=== PATIENT | male | born 1945 | race Caucasian/White ===

== ENCOUNTER 2024-12-31 14:43 | Inpatient (IN) | payer OTHER ==
[~2024-12-31] VITALS: Ht 177.8 cm; Wt 139.1 kg
[2024-12-31] MEDS ORDERED: ELIQUIS5 M3 PO (15:06)
[2024-12-31] MEDS ORDERED: METOPROLOL TART5010 PO (15:06)
[2024-12-31] MEDS ORDERED: Ramipril10 MG PO (15:06)
[2024-12-31] MEDS ORDERED: Zocor10 MG PO (15:06)
[2024-12-31 15:44] LABS: Source, Urine Voided
[2024-12-31 15:47] LABS: CORONAVIRUS COVID-19 AG Negative (NEGATIVE)
[2024-12-31 15:48] LABS: BASOPHILS ABSOLUTE AUTO 0.10 K/mm3 (0.00-0.23); BASOPHILS PERCENT AUTO 1 % (0-2); EOSINOPHILS ABSOLUTE AUTO 0.08 K/mm3 (0.00-0.68); EOSINOPHILS PERCENT AUTO 1 % (0-6); Hematocrit 46.7 % (37.0-53.0); Hemoglobin 15.6 g/dL (13.5-17.5); IMMATURE GRAN ABSOLUTE AUTO 0.08 K/mm3 (0.00-0.10); IMMATURE GRAN PERCENT AUTO 1 % (0-1); LYMPHOCYTES ABSOLUTE AUTO 0.53 K/mm3 (0.84-5.20); LYMPHOCYTES PERCENT AUTO 3 % (21-46); MONOCYTES ABSOLUTE AUTO 0.96 K/mm3 (0.16-1.47); MONOCYTES PERCENT AUTO 6 % (4-13); Mean Corpuscular HGB Conc 33.4 g/dL (31.5-36.5); Mean Corpuscular Volume 84 fL (80-100); NEUTROPHILS ABSOLUTE AUTO 14.02 K/mm3 (1.96-9.15); NEUTROPHILS PERCENT AUTO 89 % (41-73); NRBC ABSOLUTE 0.00 K/mm3 (0.00-0.02); NRBC Auto 0.0 /100 WBC (0.0-0.2); Platelet Count 184 K/mm3 (150-400); RDW Coefficient Variation 13.4 % (11.7-14.2); RDW Standard Deviation 42.0 fL (35.1-46.3)
[2024-12-31 15:56] LABS: Bilirubin, Urine Neg (Neg); Color, Urine Amber (P-Yellow); Glucose Qualitative, Urine Neg (Neg); Ketones, Urine Neg (Neg); Leukocyte Esterase, Urine 1+ (Neg); Protein, Urine 1+ (Neg); Specific Gravity, Urine 1.020 (1.003-1.022); Urobilinogen, Urine NORM (Normal)
[2024-12-31 16:08] LABS: Prothrombin Time Results 12.8 Sec (9.7-11.5)
[2024-12-31 16:15] LABS: Red Blood Cells, Urine 0-2 /hpf (0-2)
[2024-12-31 17:10] LABS: Alanine Aminotransfer (ALT/SGP 16.0 U/L (12-78); Albumin, Blood 3.3 g/dL (3.4-5.0); Albumin/Globulin Ratio 0.8 (0.8-1.8); Anion Gap 9.0 mmol/L (3-11); Aspartate Aminotrans (AST/SGOT 24.0 U/L (12-37); Bilirubin, Direct 0.2 mg/dL (0.0-0.3); Bilirubin, Indirect 1.0 mg/dL (0.1-0.7); Bilirubin, Total 1.2 mg/dL (0.1-1.0); Blood Urea Nitrogen 19.0 mg/dL (8-24); CO2, Blood 25.0 mmol/L (21-32); Calcium, Blood 9.5 mg/dL (8.5-10.1); Chloride, Blood 106.0 mmol/L (98-108); Creatinine, Blood 1.31 mg/dL (0.60-1.20); Globulin, Blood 4.2 g/dL (2.2-4.0); Glucose, Blood 114.0 mg/dL (70-99); Magnesium, Blood 1.6 mg/dL (1.6-2.4); Phosphorus, Blood 1.6 mg/dL (2.5-4.9); Potassium, Blood 4.0 mmol/L (3.5-5.5); Sodium, Blood 136.0 mmol/L (136-145); Total Protein, Blood 7.5 g/dL (6.4-8.2)
[2024-12-31] MEDS ORDERED: CefTRIAXone Sodium 1,000 MG in NS 50 ML IV ONE (17:35)
[2024-12-31] MEDS ORDERED: Potassium Phosphate Dibasic 30 MM in Dextrose 5% 500 ML IV STA (19:20)
[2024-12-31 20:13] LABS: pH Blood Venous 7.37 (7.34-7.37)
[2024-12-31] MEDS ORDERED: Lactobacil 2-S.Thermo-Bifido 1 1 Cap PO SCH (21:00)
[2024-12-31 21:03] VITALS: BP 135/77
[2024-12-31] MEDS ORDERED: KLOR-CON 1010 ME9 PO (21:06)
[2025-01-01 04:20] VITALS: BP 129/72
[2025-01-01 04:56] LABS: BASOPHILS ABSOLUTE AUTO 0.05 K/mm3 (0.00-0.23); BASOPHILS PERCENT AUTO 0 % (0-2); EOSINOPHILS ABSOLUTE AUTO 0.02 K/mm3 (0.00-0.68); EOSINOPHILS PERCENT AUTO 0 % (0-6); Hematocrit 43.8 % (37.0-53.0); Hemoglobin 14.8 g/dL (13.5-17.5); IMMATURE GRAN ABSOLUTE AUTO 0.07 K/mm3 (0.00-0.10); IMMATURE GRAN PERCENT AUTO 1 % (0-1); LYMPHOCYTES ABSOLUTE AUTO 0.66 K/mm3 (0.84-5.20); LYMPHOCYTES PERCENT AUTO 5 % (21-46); MONOCYTES ABSOLUTE AUTO 1.09 K/mm3 (0.16-1.47); MONOCYTES PERCENT AUTO 8 % (4-13); Mean Corpuscular HGB Conc 33.8 g/dL (31.5-36.5); Mean Corpuscular Volume 86 fL (80-100); NEUTROPHILS ABSOLUTE AUTO 11.16 K/mm3 (1.96-9.15); NEUTROPHILS PERCENT AUTO 85 % (41-73); NRBC ABSOLUTE 0.00 K/mm3 (0.00-0.02); NRBC Auto 0.0 /100 WBC (0.0-0.2); Platelet Count 163 K/mm3 (150-400); RDW Coefficient Variation 13.7 % (11.7-14.2); RDW Standard Deviation 43.3 fL (35.1-46.3)
--- NOTE | 2025-01-01 06:24 | NUR ---
SHIFT SUMMARY PATIENT IS ALERT AND ORIENTED X3 WITH CONFUSION. PATIENT HAS HAD NO ACUTE EVENTS THIS SHIFT. VITAL SIGNS REVIEWED. PATIENT HAS MALE PUREWICK IN PLACE FOR INCONTINENCE. PATIENT HAS HAD NO COMPLAINTS OF PAIN,NAUSEA, SOB OR VOMITTING THIS SHIFT. BED IN LOCKED AND LOWEST POSITION. CALL LIGHT IN PLACE.
[2025-01-01 08:09] VITALS: BP 129/70
[2025-01-01] MEDS ORDERED: Furosemide 10 MG / ML 2ML Vial IV SCH (09:00)
[2025-01-01 11:04] LABS: Alanine Aminotransfer (ALT/SGP 14.0 U/L (12-78); Albumin, Blood 2.9 g/dL (3.4-5.0); Albumin/Globulin Ratio 0.8 (0.8-1.8); Anion Gap 15.0 mmol/L (3-11); Aspartate Aminotrans (AST/SGOT 22.0 U/L (12-37); Bilirubin, Total 1.2 mg/dL (0.1-1.0); Blood Urea Nitrogen 15.0 mg/dL (8-24); CO2, Blood 24.0 mmol/L (21-32); Calcium, Blood 9.1 mg/dL (8.5-10.1); Chloride, Blood 103.0 mmol/L (98-108); Creatinine, Blood 1.34 mg/dL (0.60-1.20); Globulin, Blood 3.8 g/dL (2.2-4.0); Glucose, Blood 116.0 mg/dL (70-99); Magnesium, Blood 1.7 mg/dL (1.6-2.4); Potassium, Blood 4.3 mmol/L (3.5-5.5); Sodium, Blood 138.0 mmol/L (136-145); Total Protein, Blood 6.7 g/dL (6.4-8.2)
[2025-01-01] MEDS ORDERED: NS 250 ML IV PRN (11:10)
[2025-01-01] MEDS ORDERED: CefTRIAXone Sodium 1,000 MG in NS 100 ML IV SCH (12:00)
[2025-01-01 15:47] VITALS: BP 122/65
--- NOTE | 2025-01-01 18:22 | NUR ---
SHIFT SUMMARY NO ACUTE CHANGES, A/Ox4, ABLE TO MAKE NEEDS KNOWN AND USING CALL SYSTEM APPROPRIATELY. PT DOES HAVE DIFFICULTY FOLLOWING DIRECTION AT TIMES. PT DENIES PAIN, SOB, OR DISTRESS. NONBLANCHABLE COCCYX. WOUND/INFECTION TO LEFT 3RD TOE - PODIATRY CONSULTED, NO NEW ORDERS AT THIS TIME. PHOTOS TAKEN AND PLACED IN PT CHART. LASIX ADMINISTERED PER ORDERS, ABX ALSO ADMINISTERED. USING URINAL WITH ASSISTANCE WITH OCCASIONAL INCONTINENT EPISODE. PT CURRENTLY RESTING IN BED EATING DINNER WITH BED IN LOWEST POSITION AND CALL LIGHT WITHIN REACH.
[2025-01-01 19:21] VITALS: BP 108/76
[2025-01-01] MEDS ORDERED: Miconazole Nitrate 2% 85 GM PWD TOP SCH (21:00)
[2025-01-01 23:23] VITALS: BP 115/66
[2025-01-02 03:30] VITALS: BP 145/84
[2025-01-02 05:20] LABS: BASOPHILS ABSOLUTE AUTO 0.05 K/mm3 (0.00-0.23); BASOPHILS PERCENT AUTO 1 % (0-2); EOSINOPHILS ABSOLUTE AUTO 0.30 K/mm3 (0.00-0.68); EOSINOPHILS PERCENT AUTO 3 % (0-6); Hematocrit 42.0 % (37.0-53.0); Hemoglobin 14.1 g/dL (13.5-17.5); IMMATURE GRAN ABSOLUTE AUTO 0.07 K/mm3 (0.00-0.10); IMMATURE GRAN PERCENT AUTO 1 % (0-1); LYMPHOCYTES ABSOLUTE AUTO 1.22 K/mm3 (0.84-5.20); LYMPHOCYTES PERCENT AUTO 12 % (21-46); MONOCYTES ABSOLUTE AUTO 1.52 K/mm3 (0.16-1.47); MONOCYTES PERCENT AUTO 15 % (4-13); Mean Corpuscular HGB Conc 33.6 g/dL (31.5-36.5); Mean Corpuscular Volume 86 fL (80-100); NEUTROPHILS ABSOLUTE AUTO 6.72 K/mm3 (1.96-9.15); NEUTROPHILS PERCENT AUTO 68 % (41-73); NRBC ABSOLUTE 0.00 K/mm3 (0.00-0.02); NRBC Auto 0.0 /100 WBC (0.0-0.2); Platelet Count 160 K/mm3 (150-400); RDW Coefficient Variation 14.1 % (11.7-14.2); RDW Standard Deviation 43.7 fL (35.1-46.3)
[2025-01-02 05:49] LABS: Anion Gap 9.0 mmol/L (3-11); Blood Urea Nitrogen 19.0 mg/dL (8-24); CO2, Blood 25.0 mmol/L (21-32); Calcium, Blood 8.5 mg/dL (8.5-10.1); Chloride, Blood 104.0 mmol/L (98-108); Creatinine, Blood 1.43 mg/dL (0.60-1.20); Glucose, Blood 106.0 mg/dL (70-99); Potassium, Blood 3.1 mmol/L (3.5-5.5); Sodium, Blood 135.0 mmol/L (136-145)
--- NOTE | 2025-01-02 06:24 | NUR ---
SUMMERY NOC SHIFT PT ADMITTED FOR TOXIC METABOLIC ENCHEPALOPATHY. PT HAD MALE PUREWICK PLACED HE HAD SEVERAL EPISODES OF URINE URGENCY BUT NOT PRODUCING OR DRINKING A LOT. PT IS COOPERATIVE WITH CARE AND ABLE TO MAKE NEEDS KNOWN. PT IS ALERT AND ORIENTED TIMES 3. BED IS IN LOW POSITION, RAILS TIMES TWO, AND CALL LIGHT IS WITHIN REACH.
[2025-01-02] MEDS ORDERED: CEFP200 PO (14:54)
[2025-01-02] MEDS ORDERED: VISBIOME 112.51 EACH PO (14:55)
[2025-01-02] MEDS ORDERED: AZIT500 PO (14:55)
[2025-01-02 16:32] VITALS: BP 118/66
--- NOTE | 2025-01-02 17:32 | NUR ---
PT DISCHARGED HOME WITH HH SERVICES. NEW RX FAXED TO [facility] PER PT SPOUSE REQUEST. REVIEWED DISCHARGE INSTRUCTIONS AND MEDICATIONS WITH PT AND PT SPOUSE. IV REMOVED AND SITE APPEARS WNL. TELE REMOVED/CLEANED AND SENT BACK TO PCU. PT ABLE TO STAND AND AMBULATE TO AND WHEELED DOWN TO PRIVATE VEHICLE BY ASSORTER. PT SPOUSE DRIVING HIM HOME.
== END 2025-01-02 17:31 | disposition home health service (06) | DRG 871 ==
LOC: ER 14:43 → MEDS 18:22 → ERHOLD 18:22 → MEDS 20:51
PROVIDERS: Emergency Medicine; Student in an Organized Health Care Education/Training Program; ADMIT Student in an Organized Health Care Education/Training Program
DX: A41.9 Sepsis, unspecified organism (principal); G92.8 Other toxic encephalopathy; J18.9 Pneumonia, unspecified organism; L03.116 Cellulitis of left lower limb; E78.5 Hyperlipidemia, unspecified; I12.9 Hypertensive chronic kidney disease with stage 1 through stage 4 chronic kidney disease, or unspecified chronic kidney disease; Z66 Do not resuscitate; E66.9 Obesity, unspecified; I35.0 Nonrheumatic aortic (valve) stenosis; N18.31 Chronic kidney disease, stage 3a; E83.39 Other disorders of phosphorus metabolism; I48.0 Paroxysmal atrial fibrillation; Z68.32 Body mass index [BMI] 32.0-32.9, adult; Z79.01 Long term (current) use of anticoagulants; Z79.899 Other long term (current) drug therapy
CPT/HCPCS: 36415; 71045; 73630; 80048; 80053; 81001; 82248; 82803; 83605; 83735; 83880; 84100; 84145; 85025; 85610; 85730; 87086; 87426-QW; 93005; 93010; 94762; 97116; 97161; 97530; 99285-25; A6590; A9270; C8929; J0456; J0696; J1938; J7050; J7060; Q9957

== ENCOUNTER 2025-02-17 09:25 | Inpatient (IN) | payer OTHER ==
[~2025-02-17] VITALS: Ht 177.8 cm; Wt 136.8 kg
[~2025-02-17 09:25] MED LIST: AZIT500 PO; CEFP200 PO; ELIQUIS5 M3 PO; KLOR-CON 1010 ME9 PO; METOPROLOL TART5010 PO; Ramipril10 MG PO; VISBIOME 112.51 EACH PO; Zocor10 MG PO
[2025-02-17 09:56] LABS: Source, Urine Clean Catch
[2025-02-17 10:08] LABS: Bilirubin, Urine Neg (Neg); Color, Urine Yellow (P-Yellow); Glucose Qualitative, Urine Neg (Neg); Ketones, Urine 1+ (Neg); Leukocyte Esterase, Urine Neg (Neg); Protein, Urine 2+ (Neg); Specific Gravity, Urine 1.025 (1.003-1.022); Urobilinogen, Urine NORM (Normal)
[2025-02-17 10:16] LABS: Red Blood Cells, Urine Not Seen /hpf (0-2); White Blood Cells, Urine 0-2 /hpf (0-5)
[2025-02-17 10:23] LABS: BASOPHILS ABSOLUTE AUTO 0.09 K/mm3 (0.00-0.23); BASOPHILS PERCENT AUTO 1 % (0-2); EOSINOPHILS ABSOLUTE AUTO 0.06 K/mm3 (0.00-0.68); EOSINOPHILS PERCENT AUTO 1 % (0-6); Hematocrit 44.3 % (37.0-53.0); Hemoglobin 14.8 g/dL (13.5-17.5); IMMATURE GRAN ABSOLUTE AUTO 0.04 K/mm3 (0.00-0.10); IMMATURE GRAN PERCENT AUTO 0 % (0-1); LYMPHOCYTES ABSOLUTE AUTO 0.79 K/mm3 (0.84-5.20); LYMPHOCYTES PERCENT AUTO 6 % (21-46); MONOCYTES ABSOLUTE AUTO 1.16 K/mm3 (0.16-1.47); MONOCYTES PERCENT AUTO 9 % (4-13); Mean Corpuscular HGB Conc 33.4 g/dL (31.5-36.5); Mean Corpuscular Volume 87 fL (80-100); NEUTROPHILS ABSOLUTE AUTO 10.15 K/mm3 (1.96-9.15); NEUTROPHILS PERCENT AUTO 83 % (41-73); NRBC ABSOLUTE 0.00 K/mm3 (0.00-0.02); NRBC Auto 0.0 /100 WBC (0.0-0.2); Platelet Count 190 K/mm3 (150-400); RDW Coefficient Variation 13.8 % (11.7-14.2); RDW Standard Deviation 44.1 fL (35.1-46.3)
[2025-02-17 10:46] LABS: Alanine Aminotransfer (ALT/SGP 14.0 U/L (12-78); Albumin, Blood 3.0 g/dL (3.4-5.0); Albumin/Globulin Ratio 0.8 (0.8-1.8); Anion Gap 9.0 mmol/L (3-11); Aspartate Aminotrans (AST/SGOT 22.0 U/L (12-37); Bilirubin, Total 1.5 mg/dL (0.1-1.0); Blood Urea Nitrogen 12.0 mg/dL (8-24); CO2, Blood 25.0 mmol/L (21-32); Calcium, Blood 9.0 mg/dL (8.5-10.1); Chloride, Blood 107.0 mmol/L (98-108); Creatinine, Blood 1.1 mg/dL (0.60-1.20); Globulin, Blood 3.9 g/dL (2.2-4.0); Glucose, Blood 114.0 mg/dL (70-99); Potassium, Blood 3.9 mmol/L (3.5-5.5); Sodium, Blood 137.0 mmol/L (136-145); Total Protein, Blood 6.9 g/dL (6.4-8.2)
[2025-02-17] MEDS ORDERED: Furosemide 10 MG / ML 2ML Vial IV ONE (11:25)
[2025-02-17] MEDS ORDERED: Metoprolol Tartrate 1 MG/ML 5 ML VIAL IV ONE (12:00)
[2025-02-17] MEDS ORDERED: ALLO100 (14:10)
[2025-02-17] MEDS ORDERED: Digoxin 0.25 MG in NS 4 ML IV SCH (16:35)
[2025-02-17 16:41] VITALS: BP 144/91
--- NOTE | 2025-02-17 18:12 | NUR ---
ADMIT AND TRANSFER TO PCU PATIENT ARRIVED 1620, ASSESSED THE PATIENT WITH SKIN CHECK, MED RECONCILLIATION COMPLETED, DINNER GIVEN, ORIENTED TO MED FLOOR. MEDICATION ORDER REQUIRED TRANSFER TO PCU 18, RN GIVEN REPORT BEFORE TRANSFER. TRANSFER OCCURED AT 1809. PATIENT A&OX4, NO DISTRESS NOTED, COOPERATIVE WITH CARE.
[2025-02-17 18:15] VITALS: BP 125/92
--- NOTE | 2025-02-17 18:32 | NUR ---
REVIEWED YVES PETERS'S ASSESSMENTS.
[2025-02-17] MEDS ORDERED: ZINC OXIDE/PETROLATUM, YELLOW 1 APPLIC/71 GM PASTE TOP PRN ×2 (19:10→19:25)
[2025-02-17] MEDS ORDERED: Miconazole Nitrate 2% 85 GM PWD TOP PRN ×2 (19:10→19:25)
--- NOTE | 2025-02-17 19:38 | NUR ---
SHIFT SUMMARY: PT TRANSFERRED TP PCU AT 1815, PT AND FAMILY ORIENTED TO ROOM AND CALL LIGHT SYSTEM. PT IS ALERT AND ORIENTED X 4, BEAVER, ABLE TO COMMUNICATE NEEDS. PT DENIES ANY PAIN AT THIS TIME. PT REMAINS ON RA WITH SPO2 ABOVE 92% PT IN AFIB WITH RVR, LANOXIN 0.25MG GIVEN. NO EFFECT, MD MADE AWARE. BP STABLE. +2 EDEMA TO BLE. MALE PUREWICK IN PLACE TO SUCTION. BILATERAL TOE CALLUS NOTED ON ADMISSION, SEE WOUND CARE ORDERS, PICTURES IN CHART. BED AT LOWEST LEVEL, CALL LIGHT WITHIN REACH
[2025-02-17 19:53] VITALS: BP 132/99
[2025-02-17] MEDS ORDERED: Magnesium Sulf 2 GM/Water 50ML 50 ML IV ONE (20:05)
[2025-02-17] MEDS ORDERED: Digoxin 0.25 MG in NS 4 ML IV ONE (22:30)
[2025-02-18] VITALS (7 sets, daily range): BP systolic 124–168; BP diastolic 79–99
[2025-02-18 04:32] LABS: BASOPHILS ABSOLUTE AUTO 0.07 K/mm3 (0.00-0.23); BASOPHILS PERCENT AUTO 1 % (0-2); EOSINOPHILS ABSOLUTE AUTO 0.10 K/mm3 (0.00-0.68); EOSINOPHILS PERCENT AUTO 1 % (0-6); Hematocrit 42.1 % (37.0-53.0); Hemoglobin 14.2 g/dL (13.5-17.5); IMMATURE GRAN ABSOLUTE AUTO 0.07 K/mm3 (0.00-0.10); IMMATURE GRAN PERCENT AUTO 1 % (0-1); LYMPHOCYTES ABSOLUTE AUTO 0.86 K/mm3 (0.84-5.20); LYMPHOCYTES PERCENT AUTO 7 % (21-46); MONOCYTES ABSOLUTE AUTO 1.20 K/mm3 (0.16-1.47); MONOCYTES PERCENT AUTO 10 % (4-13); Mean Corpuscular HGB Conc 33.7 g/dL (31.5-36.5); Mean Corpuscular Volume 85 fL (80-100); NEUTROPHILS ABSOLUTE AUTO 9.51 K/mm3 (1.96-9.15); NEUTROPHILS PERCENT AUTO 81 % (41-73); NRBC ABSOLUTE 0.00 K/mm3 (0.00-0.02); NRBC Auto 0.0 /100 WBC (0.0-0.2); Platelet Count 188 K/mm3 (150-400); RDW Coefficient Variation 13.9 % (11.7-14.2); RDW Standard Deviation 43.0 fL (35.1-46.3)
[2025-02-18 04:57] LABS: Alanine Aminotransfer (ALT/SGP 12.0 U/L (12-78); Albumin, Blood 2.7 g/dL (3.4-5.0); Albumin/Globulin Ratio 0.8 (0.8-1.8); Anion Gap 9.0 mmol/L (3-11); Aspartate Aminotrans (AST/SGOT 20.0 U/L (12-37); Bilirubin, Total 2.0 mg/dL (0.1-1.0); Blood Urea Nitrogen 14.0 mg/dL (8-24); CO2, Blood 24.0 mmol/L (21-32); Calcium, Blood 8.7 mg/dL (8.5-10.1); Chloride, Blood 107.0 mmol/L (98-108); Creatinine, Blood 0.97 mg/dL (0.60-1.20); Globulin, Blood 3.6 g/dL (2.2-4.0); Glucose, Blood 121.0 mg/dL (70-99); Magnesium, Blood 2.1 mg/dL (1.6-2.4); Phosphorus, Blood 2.6 mg/dL (2.5-4.9); Potassium, Blood 3.6 mmol/L (3.5-5.5); Sodium, Blood 136.0 mmol/L (136-145); Total Protein, Blood 6.3 g/dL (6.4-8.2)
--- NOTE | 2025-02-18 05:18 | NUR ---
SHIFT SUMMARY: PATIENT HAS BEEN A&OX2-4 THROUGHOUT SHIFT, WITH INTERMITTENT CONFUSION. MAJORITY OF THE SHIFT HE HAS BEEN A&OX4, BUT NOTED DURING ROUNDING TO AT SOME POINTS BE REMOVING HIS PULSE OXIMETRY PROBE STATING "WHERE DID MY HAND GO?", UNABLE TO STATE HIS CURRENT LOCATION, AND ASKED IF HIS CAME BY TO SEE HIM YET IN THE MIDDLE OF THE NIGHT. PATIENT EASILY REORIENTED EACH TIME. PERIODIC NEURO ASSESSMENTS PERFORMED; FINDINGS WNL EXCEPT FOR THE INTERMITTENT CONFUSION. PRIOR HISTORY REVIEWED- PATIENTS PRIOR ADMISSION (DECEMBER 2024) NOTED CONFUSION THAT RESOLVED WITH IV ABX FOR HIS PNA DX AT THAT TIME. BED ALARM ON FOR SAFETY. TELE SHOWED AFIB WITH HR BETWEEN 90'S-110'S BPM. PATIENT IS TACHYPNEIC WITH CRACKLES TO BILATERAL LUNG BASES BUT PATIENT DENIES SHORTNESS OF BREATH. HE REMAINS ON ROOM AIR WITH >90% SPO2. PATIENT REPORTED A "SHARP" PAININ HIS LEFT WRIST; NO OTHER PAIN COMPLAINTS REPORTED. MD NOTIFIED, TYLENOL PRN ORDERED. PATIENT ON BEDREST; REPOSITIONED WITH 2P ASSIST THROUGHOUT SHIFT. MALE PUREWICK IN PLACE AND ON LOW CONTINUOUT SUCTION WITH LALO/ORANGE URINE OUTPUT. DENIES NUMBNESS/TINGLING THROUGHOUT EXTREMITIES; MOVES ALL FINGERS AND TOES WITHOUT DIFFICULTY. WOUND CARE COMPLETED TO BILATERAL 3RD TOES PER ORDERS- DRESSINGS ARE C/D/I. ONE DOSE OF IV MAGNESIUM AND IV DIGOXIN ADMINISTERED PER AUG. CALL LIGHT WITHIN REACH. CALL LIGHT WITHIN REACH.
--- NOTE | 2025-02-18 09:41 | NUR ---
MD CONTACTED: THIS RN CONTACTED ATTENDING REGARDING PATIENT'S HEART RATE TOUCHING INTO 160'S WHILE TRANSFERRING TO BEDSIDE COMMODE. PATIENT CONTINUES TO OCCASIONALLY TOUCH UP INTO 160'S AFTER BEING GIVEN PO METORPORLOL THIS MORNING. ATTENDING STATED "THEY ARE WAITING TO SPEAK WITH CARDIOLOGY REGARDING PLAN". PATIENT IS WORKING WITH PHYSICAL THERAPY CURRENTLY AND OCCASIONALLY CONTINUES TO TOUCH 160'S. CHARGE NURSE TO CALL SOCIAL SECRETARY TO GET ORDERS.
--- NOTE | 2025-02-18 17:15 | NUR ---
SHIFT NOTE: PT A/OX3-4 POLITE COOPERATIVE WITH CARE. HE IS SK[place] AND OFTEN NEEDS INSTRUCTIONS REPEATED. HE REMAINS IN AFIB. RATES WERE TOUCHING THE 160S THIS AM BUT AFTER METROPOLOL AND DIGOXIN RATES HAVE REMAINED 80-90S. PT DENIES CHEST PAIN/PRESSURE. LOWER EXTRIMITIES REMAIN EDEMATOUS. SCDS IN PLACE WHEN IN BED AND FEET ELEVATED WHEN IN CHAIR. PT NEEDS LOTS OF ENCOURAGEMENT TO GET OUT OF BED AND INTO CHAIR. PUREWICK REMOVED TO ENCOURAGE MOBILITY WHEN NEEDING TO VOID. HE REMAINS ON RA WITH SPO2>90%. CALL LIGHT IN REACH, CARE CONTINUES
[2025-02-19 03:48] VITALS: BP 134/78
[2025-02-19 04:03] LABS: BASOPHILS ABSOLUTE AUTO 0.07 K/mm3 (0.00-0.23); BASOPHILS PERCENT AUTO 1 % (0-2); EOSINOPHILS ABSOLUTE AUTO 0.33 K/mm3 (0.00-0.68); EOSINOPHILS PERCENT AUTO 3 % (0-6); Hematocrit 41.0 % (37.0-53.0); Hemoglobin 13.8 g/dL (13.5-17.5); IMMATURE GRAN ABSOLUTE AUTO 0.10 K/mm3 (0.00-0.10); IMMATURE GRAN PERCENT AUTO 1 % (0-1); LYMPHOCYTES ABSOLUTE AUTO 0.98 K/mm3 (0.84-5.20); LYMPHOCYTES PERCENT AUTO 10 % (21-46); MONOCYTES ABSOLUTE AUTO 1.03 K/mm3 (0.16-1.47); MONOCYTES PERCENT AUTO 10 % (4-13); Mean Corpuscular HGB Conc 33.7 g/dL (31.5-36.5); Mean Corpuscular Volume 85 fL (80-100); NEUTROPHILS ABSOLUTE AUTO 7.35 K/mm3 (1.96-9.15); NEUTROPHILS PERCENT AUTO 75 % (41-73); NRBC ABSOLUTE 0.00 K/mm3 (0.00-0.02); NRBC Auto 0.0 /100 WBC (0.0-0.2); Platelet Count 183 K/mm3 (150-400); RDW Coefficient Variation 13.8 % (11.7-14.2); RDW Standard Deviation 42.5 fL (35.1-46.3)
[2025-02-19 04:33] LABS: Alanine Aminotransfer (ALT/SGP 13.0 U/L (12-78); Albumin, Blood 2.5 g/dL (3.4-5.0); Albumin/Globulin Ratio 0.7 (0.8-1.8); Anion Gap 10.0 mmol/L (3-11); Aspartate Aminotrans (AST/SGOT 22.0 U/L (12-37); Bilirubin, Total 1.4 mg/dL (0.1-1.0); Blood Urea Nitrogen 18.0 mg/dL (8-24); CO2, Blood 23.0 mmol/L (21-32); Calcium, Blood 8.4 mg/dL (8.5-10.1); Chloride, Blood 106.0 mmol/L (98-108); Creatinine, Blood 1.04 mg/dL (0.60-1.20); Globulin, Blood 3.7 g/dL (2.2-4.0); Glucose, Blood 101.0 mg/dL (70-99); Potassium, Blood 3.3 mmol/L (3.5-5.5); Sodium, Blood 136.0 mmol/L (136-145); Total Protein, Blood 6.2 g/dL (6.4-8.2)
--- NOTE | 2025-02-19 05:37 | NUR ---
SHIFT SUMMARY PT IS A&O X 4, SLOW TO RESPOND, ABLE TO MAKE NEEDS KNOWN, MOVING ALL EXTREMITIES WITH PURPOSE, OBEYS COMMANDS, REPOSITIONING SELF IN BED, ENCOURAGMENT WITH MOTIVATION. CONTINUOUS SPO2, SPO2 GREATER 92% ON RA, LUNGS SOUND DIM T/O WITH, NO SIGNS OF RESPIRATORY DISTRESS NOTED T/O THIS SHIFT, PT DENIES SOB. CONTINUOUS TELE MONITORING, AFIB 100-110 S WHILE AT REST/ OCCATIOLANNLLY PT TOUCHED 130 S WITH ACTIVITY BUT DID NOT SUSTAIN, MURMUR, PULSES PRESENT T/O, PT DENIES CHEST P/P T/O THIS SHIFT, BP STABLE WITH MAP GREATER THAN 65. BOWEL TONES PRESENT IN ALL 4Q, PT DENIES FEELINGS OF NAUSEA, OR CONSTIPATION. MIXED INCONTINUENCE, URINE YELLOW. BED LOWEST POSITION, CALL LIGHT IN REACH, AWAITING TO GIVE REPORT TO ONCOMING RN.
[2025-02-19 12:27] VITALS: BP 134/83
--- NOTE | 2025-02-19 13:46 | NUR ---
ASSUMPTION OF CARE ASSUMED CARE OF THIS PATIENT AT 07:00. RECIEVED SHIFT REPORT FROM NIGHT NURSE. PATIENT WAS ALERT AND ORIENTED X4. PATIENT IS IN AFIB >110. PATIENT MEDICATED PER EMAR. PT/OT SCHEDULED FOR TODAY. PATIENT'S HR DECREASED TO 70-90 AFTER MEDICATION. PATIENT DENIES CHEST PAIN/PRESSURE OF SOB. PATIENT HAS PIV IN RIGHT AC, PATENT AND FLUSHES. PATIENT IS RESTING COMFORTABLY IN RECLINER. CALL LIGHT IS WITH IN REACH.
[2025-02-19 17:10] VITALS: BP 131/86
--- NOTE | 2025-02-19 18:25 | NUR ---
SHIFT SUMMARY PATIENT'S RESTING HR HAS BEEN 70-90 IN AFIB. HR INCREASES WITH EXERTION AND RETURNS TO 70-90 WITH IN MINUTES. PATIENT WAS ASSESSED BY PT/OT. HE WAS ABLE TO USE BEDSIDE COMMODE, 1 PERSON ASSIST WITH WALKER. WILL REPORT TO NOC SHIFT RN. RESTING IN RECLINER, CALL LIGHT WITH IN REACH. RIGHT PIV IS PATENT AND FLUSHES.
[2025-02-19 19:40] VITALS: BP 118/79
[2025-02-19 23:25] VITALS: BP 141/104
[2025-02-20 04:10] VITALS: BP 146/92
[2025-02-20 05:36] LABS: BASOPHILS ABSOLUTE AUTO 0.07 K/mm3 (0.00-0.23); BASOPHILS PERCENT AUTO 1 % (0-2); EOSINOPHILS ABSOLUTE AUTO 0.37 K/mm3 (0.00-0.68); EOSINOPHILS PERCENT AUTO 5 % (0-6); Hematocrit 44.2 % (37.0-53.0); Hemoglobin 14.7 g/dL (13.5-17.5); IMMATURE GRAN ABSOLUTE AUTO 0.05 K/mm3 (0.00-0.10); IMMATURE GRAN PERCENT AUTO 1 % (0-1); LYMPHOCYTES ABSOLUTE AUTO 0.87 K/mm3 (0.84-5.20); LYMPHOCYTES PERCENT AUTO 11 % (21-46); MONOCYTES ABSOLUTE AUTO 0.91 K/mm3 (0.16-1.47); MONOCYTES PERCENT AUTO 12 % (4-13); Mean Corpuscular HGB Conc 33.3 g/dL (31.5-36.5); Mean Corpuscular Volume 85 fL (80-100); NEUTROPHILS ABSOLUTE AUTO 5.34 K/mm3 (1.96-9.15); NEUTROPHILS PERCENT AUTO 70 % (41-73); NRBC ABSOLUTE 0.00 K/mm3 (0.00-0.02); NRBC Auto 0.0 /100 WBC (0.0-0.2); Platelet Count 209 K/mm3 (150-400); RDW Coefficient Variation 13.5 % (11.7-14.2); RDW Standard Deviation 42.1 fL (35.1-46.3)
[2025-02-20 05:55] LABS: Alanine Aminotransfer (ALT/SGP 22.0 U/L (12-78); Albumin, Blood 2.6 g/dL (3.4-5.0); Albumin/Globulin Ratio 0.6 (0.8-1.8); Anion Gap 10.0 mmol/L (3-11); Aspartate Aminotrans (AST/SGOT 35.0 U/L (12-37); Bilirubin, Total 1.1 mg/dL (0.1-1.0); Blood Urea Nitrogen 23.0 mg/dL (8-24); CO2, Blood 25.0 mmol/L (21-32); Calcium, Blood 8.8 mg/dL (8.5-10.1); Chloride, Blood 105.0 mmol/L (98-108); Creatinine, Blood 1.12 mg/dL (0.60-1.20); Globulin, Blood 4.2 g/dL (2.2-4.0); Glucose, Blood 89.0 mg/dL (70-99); Potassium, Blood 3.6 mmol/L (3.5-5.5); Sodium, Blood 136.0 mmol/L (136-145); Total Protein, Blood 6.8 g/dL (6.4-8.2)
--- NOTE | 2025-02-20 06:58 | NUR ---
PT STABLE THROUGHOUT THE SHIFT. PT HAD VERY FREQUENT, SMALL URINARY VOIDS. PT REMAINED AOX4, VITAL SIGNS WNL. PT HAD VERY LARGE LOOSE BM. PT REMAINS IN AFIB WITH CONTROLLED RATE. NO ACUTE EVENTS OVER NIGHT.
[2025-02-20 07:50] VITALS: BP 160/93
[2025-02-20] MEDS ORDERED: Potassium Phosphate Dibasic 20 MM in Dextrose 5% 500 ML IV STA (08:11)
[2025-02-20] MEDS ORDERED: Magnesium Sulf 2 GM/Water 50ML 50 ML IV ONE (09:45)
[2025-02-20 12:24] VITALS: BP 115/79
--- NOTE | 2025-02-20 14:30 | NUR ---
PT IS A&Ox4 AND ABLE TO MAKE NEEDS KNOWN. HE IS ON RA W/O2 SATS >92%. HE HAD HD TODAY AND TOLERATED IT WELL. STILL HAVING PAIN TO THE L LEG WHEN HE MOVES IT OR TRIES TO STAND. PT DISCHARGED HOME W/ AND ALL PERSONAL BELONGINGS.
[2025-02-20 16:57] VITALS: BP 134/88
--- NOTE | 2025-02-20 17:09 | NUR ---
PT IS A&Ox4 AND ABLE TO MAKE NEEDS KNOWN. HE IS ON RA W/O2 SATS > 92%. HE IS A x1 ASSIST W/FWW AND GAIT BELT. HE USES THE URINAL AND BSC FOR THE BATHROOM. NO NEEDS OR CONCERNS NOTED @ THIS TIME. CALLED REPORT TO KATARINA ON MEDICAL FLOOR. PT GOING TO [id number].
--- NOTE | 2025-02-20 17:36 | NUR ---
TRANSFER NOTE PT TRANSFERRED FROM PCU 18, REPORT RECEIVED FROM YVES RAVI. PT ORIENTED TO THE ROOM, NO COMPLAINTS ON TRANSFER.
[2025-02-20 19:43] VITALS: BP 123/81
[2025-02-21] VITALS (7 sets, daily range): BP systolic 115–164; BP diastolic 61–104
--- NOTE | 2025-02-21 04:20 | NUR ---
SHIFT SUMMARY 79 YR M ADMITTED ON 02/17/25. DNI. NO ACUTE CHANGES THIS SHIFT. PT IS A HEAVY 2 PERSON ASSIST AND IS UNSTEADY ON HIS FEET. PUREWIK PLACED HE HAS DIFFICULTY USING URINAL EFFECTIVELY. BP ELEVATED THIS SHIFT BUT NO ADVERSE EVENTS REPORTED BY CHARGE OPERATOR. PT IS ABLE TO MAKE HIS NEEDS KNOWN. BED IN LOW OSITION AND CALL LIGHT IN REACH.
[2025-02-21 06:22] LABS: BASOPHILS ABSOLUTE AUTO 0.07 K/mm3 (0.00-0.23); BASOPHILS PERCENT AUTO 1 % (0-2); EOSINOPHILS ABSOLUTE AUTO 0.37 K/mm3 (0.00-0.68); EOSINOPHILS PERCENT AUTO 4 % (0-6); Hematocrit 43.7 % (37.0-53.0); Hemoglobin 14.7 g/dL (13.5-17.5); IMMATURE GRAN ABSOLUTE AUTO 0.04 K/mm3 (0.00-0.10); IMMATURE GRAN PERCENT AUTO 1 % (0-1); LYMPHOCYTES ABSOLUTE AUTO 0.99 K/mm3 (0.84-5.20); LYMPHOCYTES PERCENT AUTO 11 % (21-46); MONOCYTES ABSOLUTE AUTO 0.91 K/mm3 (0.16-1.47); MONOCYTES PERCENT AUTO 10 % (4-13); Mean Corpuscular HGB Conc 33.6 g/dL (31.5-36.5); Mean Corpuscular Volume 84 fL (80-100); NEUTROPHILS ABSOLUTE AUTO 6.37 K/mm3 (1.96-9.15); NEUTROPHILS PERCENT AUTO 73 % (41-73); NRBC ABSOLUTE 0.00 K/mm3 (0.00-0.02); NRBC Auto 0.0 /100 WBC (0.0-0.2); Platelet Count 232 K/mm3 (150-400); RDW Coefficient Variation 13.6 % (11.7-14.2); RDW Standard Deviation 41.5 fL (35.1-46.3)
[2025-02-21 07:18] LABS: Alanine Aminotransfer (ALT/SGP 26.0 U/L (12-78); Albumin, Blood 2.7 g/dL (3.4-5.0); Albumin/Globulin Ratio 0.7 (0.8-1.8); Anion Gap 12.0 mmol/L (3-11); Aspartate Aminotrans (AST/SGOT 32.0 U/L (12-37); Bilirubin, Total 1.0 mg/dL (0.1-1.0); Blood Urea Nitrogen 25.0 mg/dL (8-24); CO2, Blood 23.0 mmol/L (21-32); Calcium, Blood 8.7 mg/dL (8.5-10.1); Chloride, Blood 106.0 mmol/L (98-108); Creatinine, Blood 1.09 mg/dL (0.60-1.20); Globulin, Blood 4.1 g/dL (2.2-4.0); Glucose, Blood 93.0 mg/dL (70-99); Magnesium, Blood 2.2 mg/dL (1.6-2.4); Potassium, Blood 3.8 mmol/L (3.5-5.5); Sodium, Blood 137.0 mmol/L (136-145); Total Protein, Blood 6.8 g/dL (6.4-8.2)
[2025-02-21] MEDS ORDERED: Magnesium Sulf 2 GM/Water 50ML 50 ML IV ONE (07:40)
--- NOTE | 2025-02-21 17:30 | NUR ---
SHIFT SUMMARY A&OX4 W/FORGETFULNESS AND PERIODS OF CONFUSION, VSS W/1 OCCURANCE OF HR REACHING 170'S FOR A FEW SECONDS WHILE USING BSC (DR ROCA AWARE); PT UP TO CHAIR X2 THIS SHIFT, RESTING W/EYES CLOSED AT THIS TIME, CALL LIGHT IN REACH, WILL CONT TO MONITOR UNTIL REPORT GIVEN TO ONCOMING NURSE.
[2025-02-22 00:29] VITALS: BP 158/112
[2025-02-22 04:21] VITALS: BP 148/86
--- NOTE | 2025-02-22 04:41 | NUR ---
SHIFT SUMMARY PT ALERT ORIENTED WITH INTERMITTENT CONFUSION AND FORGETFULNESS. HE HAD 1 HIGH BP OF 158/112 AFTER THAT HE WAS 148/86. HE SLEPT WELL MOST OF THE NIGHT AND IS BEING TURNED AND REPOSITIONED. NO C/O PAIN THIS SHIFT. MALE SORAYAWIDESHAUN IS INTACT DRAINING YELLOW URINE. 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 REMAINS ON TELEMETRY AT AFIB AT 82 WITH BBB. REMAINS WITH TREMORS AND HES BEING RULED OUT FOR POSSIBLE PARKINSONS. HES RESTING IN BED AT THIS TIME
[2025-02-22 05:35] LABS: BASOPHILS ABSOLUTE AUTO 0.08 K/mm3 (0.00-0.23); BASOPHILS PERCENT AUTO 1 % (0-2); EOSINOPHILS ABSOLUTE AUTO 0.29 K/mm3 (0.00-0.68); EOSINOPHILS PERCENT AUTO 3 % (0-6); Hematocrit 44.7 % (37.0-53.0); Hemoglobin 15.0 g/dL (13.5-17.5); IMMATURE GRAN ABSOLUTE AUTO 0.05 K/mm3 (0.00-0.10); IMMATURE GRAN PERCENT AUTO 1 % (0-1); LYMPHOCYTES ABSOLUTE AUTO 0.89 K/mm3 (0.84-5.20); LYMPHOCYTES PERCENT AUTO 8 % (21-46); MONOCYTES ABSOLUTE AUTO 1.10 K/mm3 (0.16-1.47); MONOCYTES PERCENT AUTO 10 % (4-13); Mean Corpuscular HGB Conc 33.6 g/dL (31.5-36.5); Mean Corpuscular Volume 86 fL (80-100); NEUTROPHILS ABSOLUTE AUTO 8.47 K/mm3 (1.96-9.15); NEUTROPHILS PERCENT AUTO 78 % (41-73); NRBC ABSOLUTE 0.00 K/mm3 (0.00-0.02); NRBC Auto 0.0 /100 WBC (0.0-0.2); Platelet Count 237 K/mm3 (150-400); RDW Coefficient Variation 13.7 % (11.7-14.2); RDW Standard Deviation 42.4 fL (35.1-46.3)
[2025-02-22 06:47] LABS: Alanine Aminotransfer (ALT/SGP 24.0 U/L (12-78); Albumin, Blood 2.8 g/dL (3.4-5.0); Albumin/Globulin Ratio 0.7 (0.8-1.8); Anion Gap 10.0 mmol/L (3-11); Aspartate Aminotrans (AST/SGOT 27.0 U/L (12-37); Bilirubin, Total 1.0 mg/dL (0.1-1.0); Blood Urea Nitrogen 27.0 mg/dL (8-24); CO2, Blood 23.0 mmol/L (21-32); Calcium, Blood 9.0 mg/dL (8.5-10.1); Chloride, Blood 106.0 mmol/L (98-108); Creatinine, Blood 1.18 mg/dL (0.60-1.20); Globulin, Blood 4.1 g/dL (2.2-4.0); Glucose, Blood 112.0 mg/dL (70-99); Magnesium, Blood 2.5 mg/dL (1.6-2.4); Potassium, Blood 4.5 mmol/L (3.5-5.5); Sodium, Blood 134.0 mmol/L (136-145); Total Protein, Blood 6.9 g/dL (6.4-8.2)
[2025-02-22 07:56] VITALS: BP 158/90
[2025-02-22 10:46] VITALS: BP 118/61
[2025-02-22 15:53] VITALS: BP 121/85
[2025-02-22] MEDS ORDERED: DIGOX125 MC1 PO (16:40)
--- NOTE | 2025-02-22 17:30 | NUR ---
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 REPORTS CALLED TO ALEJANDRO NURSE AT [facility]. BELONGINGS SENT WITH PATIENT. SANJUANA NNOTIFIED OF TRANSFER. PATIENT DENIES ANY FURTHER QUESTIONS OR CONCERNS.
== END 2025-02-22 17:30 | DRG 291 ==
LOC: ER 09:25 → MEDS 15:43 → PCU 15:43 → MEDS 16:40 → PCU 18:08 → MEDS 02-20 17:21
PROVIDERS: Emergency Medicine; Student in an Organized Health Care Education/Training Program; ADMIT Family Medicine
DX: I13.0 Hypertensive heart and chronic kidney disease with heart failure and stage 1 through stage 4 chronic kidney disease, or unspecified chronic kidney disease (principal); I50.33 Acute on chronic diastolic (congestive) heart failure; E78.5 Hyperlipidemia, unspecified; N18.9 Chronic kidney disease, unspecified; S09.90XA Unspecified injury of head, initial encounter; I48.0 Paroxysmal atrial fibrillation; I35.0 Nonrheumatic aortic (valve) stenosis; Z79.01 Long term (current) use of anticoagulants; Z79.899 Other long term (current) drug therapy; W18.30XA Fall on same level, unspecified, initial encounter
CPT/HCPCS: 36415; 70450; 71045; 80053; 80162; 81001; 83735; 83880; 84100; 84443; 84484; 85025; 93005; 93010; 94762; 96374; 96375; 97110; 97161; 97165; 97530; 97535; 99285-25; A9270; J1160; J1938; J3475; J7060

== ENCOUNTER 2025-03-21 07:53 | Day surgery (SDC) | payer OTHER ==
[~2025-03-21] VITALS: Ht 177.8 cm; Wt 136.1 kg
[2025-03-21] VITALS (9 sets, daily range): BP systolic 124–147; BP diastolic 75–86
[~2025-03-21 07:53] MED LIST changes: +ALLO100 PO; +DIGOX125 MC1 PO; +FURO20 PO
[2025-03-21] MEDS ORDERED: Heparin Sodium 1000 Units/ML 10ML MDV ONE (07:55)
[2025-03-21] MEDS ORDERED: NS 1,000 ML IV ONE ×2 (07:55→08:00)
[2025-03-21] MEDS ORDERED: NS 250 ML IV ONE (07:55)
[2025-03-21] MEDS ORDERED: Nitroglycerin 2 MG/20 ML BTL ONE (07:56)
[2025-03-21] MEDS ORDERED: Verapamil HCL 2.5 MG/ML 2ML Injection ONE (07:57)
[2025-03-21] MEDS ORDERED: TAMS.4ER PO (08:18)
[2025-03-21] MEDS ORDERED: FentaNYL Citrate 50 MCG/ML 2 ML Injection ONE (08:38)
[2025-03-21] MEDS ORDERED: Midazolam HCl 1MG / ML 2ML Vial ONE (08:38)
--- NOTE | 2025-03-21 10:07 | NUR ---
pt back to recovery from lab. pt a&o. radial site soft and non-tender per pt. no bleeding/hematoma noted. pt given water and breakfast tray.
--- NOTE | 2025-03-21 11:14 | NUR ---
pt finished w/ breakfast tray
--- NOTE | 2025-03-21 11:19 | NUR ---
2cc removed from tr band. site soft and non-tender per pt. no bleeding/hematoma noted.
--- NOTE | 2025-03-21 11:30 | NUR ---
2cc removed from tr band. site soft and non-tender per pt. no bleeding/hematoma noted.
--- NOTE | 2025-03-21 11:40 | NUR ---
tr band fully deflated. radial site soft and non-tender per pt. no bleeding/hematoma noted.
--- NOTE | 2025-03-21 13:24 | NUR ---
pt given dc instructions and verbalized understanding. iv out. pt changed. radial site soft and non-tender per pt. no bleeding/hematoma noted. cloth dot, sling, arm board applied. pt taken to [facility] via [facility]. family to give pt ride home.
== END 2025-03-21 13:35 | disposition home or self-care (01) ==
LOC: MHTC 07:53
DX: I35.0 Nonrheumatic aortic (valve) stenosis (principal); I77.810 Thoracic aortic ectasia; I10 Essential (primary) hypertension; I48.0 Paroxysmal atrial fibrillation; E78.5 Hyperlipidemia, unspecified; Z87.891 Personal history of nicotine dependence; Z79.01 Long term (current) use of anticoagulants; Z79.899 Other long term (current) drug therapy
CPT/HCPCS: 76937; 93454; 99152; 99153; C1769; C1887; C1894; J1644; J2250; J3010; J7030; J7050; Q9967

== ENCOUNTER 2025-03-28 22:55 | Inpatient (IN) | payer OTHER ==
[~2025-03-28] VITALS: Ht 175.3 cm; Wt 133.3 kg
[~2025-03-28 22:55] MED LIST changes: +TAMS.4ER PO
[2025-03-28 23:41] LABS: BASOPHILS ABSOLUTE AUTO 0.06 K/mm3 (0.00-0.23); BASOPHILS PERCENT AUTO 0 % (0-2); EOSINOPHILS ABSOLUTE AUTO 0.10 K/mm3 (0.00-0.68); EOSINOPHILS PERCENT AUTO 1 % (0-6); Hematocrit 36.0 % (37.0-53.0); Hemoglobin 12.4 g/dL (13.5-17.5); IMMATURE GRAN ABSOLUTE AUTO 0.10 K/mm3 (0.00-0.10); IMMATURE GRAN PERCENT AUTO 1 % (0-1); LYMPHOCYTES ABSOLUTE AUTO 1.27 K/mm3 (0.84-5.20); LYMPHOCYTES PERCENT AUTO 8 % (21-46); MONOCYTES ABSOLUTE AUTO 1.43 K/mm3 (0.16-1.47); MONOCYTES PERCENT AUTO 9 % (4-13); Mean Corpuscular HGB Conc 34.4 g/dL (31.5-36.5); Mean Corpuscular Volume 84 fL (80-100); NEUTROPHILS ABSOLUTE AUTO 13.42 K/mm3 (1.96-9.15); NEUTROPHILS PERCENT AUTO 82 % (41-73); NRBC ABSOLUTE 0.00 K/mm3 (0.00-0.02); NRBC Auto 0.0 /100 WBC (0.0-0.2); Platelet Count 239 K/mm3 (150-400); RDW Coefficient Variation 14.5 % (11.7-14.2); RDW Standard Deviation 44.1 fL (35.1-46.3)
[2025-03-28 23:53] LABS: Source, Urine Foley catheter
[2025-03-28 23:53] LABS: Influenza A, PCR NEGATIVE (NEGATIVE); Influenza B, PCR NEGATIVE (NEGATIVE); Resp Syncytial Virus, PCR NEGATIVE (NEGATIVE); SARS-Cov-2 (COVID-19) PCR, MMC NEGATIVE (NEGATIVE)
[2025-03-28 23:55] LABS: Alanine Aminotransfer (ALT/SGP 37.0 U/L (12-78); Albumin, Blood 2.2 g/dL (3.4-5.0); Albumin/Globulin Ratio 0.5 (0.8-1.8); Anion Gap 10.0 mmol/L (3-11); Aspartate Aminotrans (AST/SGOT 37.0 U/L (12-37); Bilirubin, Total 1.5 mg/dL (0.1-1.0); Blood Urea Nitrogen 29.0 mg/dL (8-24); CO2, Blood 23.0 mmol/L (21-32); Calcium, Blood 8.8 mg/dL (8.5-10.1); Chloride, Blood 105.0 mmol/L (98-108); Creatinine, Blood 1.31 mg/dL (0.60-1.20); Globulin, Blood 4.5 g/dL (2.2-4.0); Glucose, Blood 126.0 mg/dL (70-99); Potassium, Blood 3.9 mmol/L (3.5-5.5); Sodium, Blood 134.0 mmol/L (136-145); Total Protein, Blood 6.7 g/dL (6.4-8.2)
[2025-03-29] VITALS (9 sets, daily range): BP systolic 92–145; BP diastolic 43–90
[2025-03-29 00:23] LABS: Bilirubin, Urine Neg (Neg); Glucose Qualitative, Urine Neg (Neg); Ketones, Urine Neg (Neg); Leukocyte Esterase, Urine 3+ (Neg); Protein, Urine 2+ (Neg); Specific Gravity, Urine 1.020 (1.003-1.022); Urobilinogen, Urine 2+ (Normal)
[2025-03-29 00:24] LABS: Color, Urine Yellow (P-Yellow)
[2025-03-29 00:25] LABS: White Blood Cells, Urine 50-100 /hpf (0-5)
[2025-03-29] MEDS ORDERED: CefTRIAXone Sodium 1,000 MG in NS 100 ML IV ONE (00:40)
[2025-03-29] MEDS ORDERED: NS 1,000 ML IV SCH (01:05)
[2025-03-29] MEDS ORDERED: Ondansetron HCl 2 MG / ML 2ML Vial IV PRN (01:05)
[2025-03-29] MEDS ORDERED: FLU VACC TS2025(65UP)/MF59C/PF 45 MCG/0.5 ML SYRINGE IM SCH (01:10)
[2025-03-29] MEDS ORDERED: Ipratropium/Albuterol SulF 2.5-0.5MG/3 ML Amp INH PRN (01:40)
[2025-03-29] MEDS ORDERED: Albumin (Human) 25gm/100ml 100 ML IV ONE (01:45)
[2025-03-29 02:55] LABS: BASOPHILS ABSOLUTE AUTO 0.07 K/mm3 (0.00-0.23); BASOPHILS PERCENT AUTO 1 % (0-2); EOSINOPHILS ABSOLUTE AUTO 0.13 K/mm3 (0.00-0.68); EOSINOPHILS PERCENT AUTO 1 % (0-6); Hematocrit 36.3 % (37.0-53.0); Hemoglobin 11.9 g/dL (13.5-17.5); IMMATURE GRAN ABSOLUTE AUTO 0.10 K/mm3 (0.00-0.10); IMMATURE GRAN PERCENT AUTO 1 % (0-1); LYMPHOCYTES ABSOLUTE AUTO 1.25 K/mm3 (0.84-5.20); LYMPHOCYTES PERCENT AUTO 9 % (21-46); MONOCYTES ABSOLUTE AUTO 1.28 K/mm3 (0.16-1.47); MONOCYTES PERCENT AUTO 9 % (4-13); Mean Corpuscular HGB Conc 32.8 g/dL (31.5-36.5); Mean Corpuscular Volume 87 fL (80-100); NEUTROPHILS ABSOLUTE AUTO 11.83 K/mm3 (1.96-9.15); NEUTROPHILS PERCENT AUTO 81 % (41-73); NRBC ABSOLUTE 0.00 K/mm3 (0.00-0.02); NRBC Auto 0.0 /100 WBC (0.0-0.2); Platelet Count 205 K/mm3 (150-400); RDW Coefficient Variation 14.4 % (11.7-14.2); RDW Standard Deviation 46.0 fL (35.1-46.3)
[2025-03-29 02:57] LABS: pH Blood Venous 7.50 (7.34-7.37)
[2025-03-29 03:14] LABS: Alanine Aminotransfer (ALT/SGP 35.0 U/L (12-78); Albumin, Blood 2.2 g/dL (3.4-5.0); Albumin/Globulin Ratio 0.5 (0.8-1.8); Anion Gap 10.0 mmol/L (3-11); Aspartate Aminotrans (AST/SGOT 36.0 U/L (12-37); Bilirubin, Total 1.3 mg/dL (0.1-1.0); Blood Urea Nitrogen 28.0 mg/dL (8-24); CO2, Blood 22.0 mmol/L (21-32); Calcium, Blood 8.5 mg/dL (8.5-10.1); Chloride, Blood 106.0 mmol/L (98-108); Creatinine, Blood 1.18 mg/dL (0.60-1.20); Globulin, Blood 4.5 g/dL (2.2-4.0); Glucose, Blood 119.0 mg/dL (70-99); Potassium, Blood 4.1 mmol/L (3.5-5.5); Sodium, Blood 134.0 mmol/L (136-145); Total Protein, Blood 6.7 g/dL (6.4-8.2)
[2025-03-29 04:20] LABS: Magnesium, Blood 1.7 mg/dL (1.6-2.4); Phosphorus, Blood 3.0 mg/dL (2.5-4.9)
--- NOTE | 2025-03-29 04:47 | NUR ---
SHIFT SUMMARY PT ARRIVED FROM ER AROUND 0230. ORIENTED TO ROOM. PT A&Ox2-3 WITH MUMHOLLYD SPEACH. AND BEDSIDE AND ABLE TO PROVIDE MOST OF PT INFORMATION. ALBUMIN GIVEN PER EMAR. PER TELE, PT RUNNING A-fIB IN THE 80s WITH BBB. MCWILLIAMS IN PLACE AND CHANGED IN ER ON 03/28/25. NO C/O PAIN. 1 TIME BAG OF NS INFUSING AT 75ml/hr. VSS. BED ALARM ON. BED IN LOWEST POSITION AND CALL LIGHT IN REACH.
[2025-03-29] MEDS ORDERED: Potassium Chloride 10 Meq Tablet SA PO SCH (09:00)
[2025-03-29] MEDS ORDERED: Enoxaparin 40 MG/0.4 ML SYR SC SCH (09:00)
[2025-03-29] MEDS ORDERED: Magnesium Sulf 2 GM/Water 50ML 50 ML IV ONE (09:25)
--- NOTE | 2025-03-29 17:28 | NUR ---
NO ACUTE CHANGES, CALL LIGHT WITH IN REACH, 2 PERSON ASSIST FOR PERICARE, HELPFUL WITH CARE, POPPY CHANGED IN ER ON 03/28/25, WILL RELAY TO PM RN
[2025-03-29] MEDS ORDERED: Metoprolol Tartrate 1 MG/ML 5 ML VIAL IV ONE (20:00)
--- NOTE | 2025-03-29 20:00 | NUR ---
HEART RATE 140-150s HOSPITALIST NOTIFIED VIA TELEPHONE. NEW ORDER RECIEVED FOR IV METOPROLOL 5MG NOW, IF HEART RATE REMAINS ABOVE 120 TO NOTIFY HOSPITALIST. VITAL SIGNS OBTAINED AND PATIENT WITH TEMP OVER 102, TYLENOL TO BE ADMINISTERED. WILL CONTINUE TO MONITOR.
[2025-03-29] MEDS ORDERED: CefTRIAXone Sodium 1,000 MG in NS 100 ML IV SCH (21:00)
[2025-03-29] MEDS ORDERED: Miconazole Nitrate 2% 85 GM PWD TOP SCH (21:00)
[2025-03-30 00:08] VITALS: BP 101/52
[2025-03-30 04:01] VITALS: BP 125/76
[2025-03-30] MEDS ORDERED: NS 250 ML IV PRN (04:45)
[2025-03-30 04:48] LABS: BASOPHILS ABSOLUTE AUTO 0.06 K/mm3 (0.00-0.23); BASOPHILS PERCENT AUTO 1 % (0-2); EOSINOPHILS ABSOLUTE AUTO 0.29 K/mm3 (0.00-0.68); EOSINOPHILS PERCENT AUTO 4 % (0-6); Hematocrit 34.8 % (37.0-53.0); Hemoglobin 11.6 g/dL (13.5-17.5); IMMATURE GRAN ABSOLUTE AUTO 0.05 K/mm3 (0.00-0.10); IMMATURE GRAN PERCENT AUTO 1 % (0-1); LYMPHOCYTES ABSOLUTE AUTO 0.72 K/mm3 (0.84-5.20); LYMPHOCYTES PERCENT AUTO 9 % (21-46); MONOCYTES ABSOLUTE AUTO 0.83 K/mm3 (0.16-1.47); MONOCYTES PERCENT AUTO 10 % (4-13); Mean Corpuscular HGB Conc 33.3 g/dL (31.5-36.5); Mean Corpuscular Volume 85 fL (80-100); NEUTROPHILS ABSOLUTE AUTO 6.08 K/mm3 (1.96-9.15); NEUTROPHILS PERCENT AUTO 76 % (41-73); NRBC ABSOLUTE 0.00 K/mm3 (0.00-0.02); NRBC Auto 0.0 /100 WBC (0.0-0.2); Platelet Count 208 K/mm3 (150-400); RDW Coefficient Variation 14.6 % (11.7-14.2); RDW Standard Deviation 44.6 fL (35.1-46.3)
[2025-03-30 05:15] LABS: Anion Gap 7.0 mmol/L (3-11); Blood Urea Nitrogen 27.0 mg/dL (8-24); CO2, Blood 25.0 mmol/L (21-32); Calcium, Blood 8.8 mg/dL (8.5-10.1); Chloride, Blood 105.0 mmol/L (98-108); Creatinine, Blood 1.23 mg/dL (0.60-1.20); Glucose, Blood 106.0 mg/dL (70-99); Magnesium, Blood 2.3 mg/dL (1.6-2.4); Phosphorus, Blood 3.6 mg/dL (2.5-4.9); Potassium, Blood 4.0 mmol/L (3.5-5.5); Sodium, Blood 133.0 mmol/L (136-145)
--- NOTE | 2025-03-30 06:34 | NUR ---
SHIFT SUMMARY PATIENT A/OX SELF. PATIENT WITH TEMP OF 102.6, MEDICATED WITH TYLENOL PER MAR, WHICH WAS EFFECTIVE. PATIENT INCONTINENT OF BOWEL X2. TELEMETRY IN PLACE, WITH ONE EVENT OF HEART RATE IN 140-150s, NOTIFIED AND LOPRESSOR ADMINISTERED. REPOSITIONED Q2 HOURS. STAT LOCK CHANGED TO MCWILLIAMS CATH, SMALL AMOUNT OF DULCE MARIA RED BLOOD TO MEATUS, MCWILLIAMS CARE PROVIDED. NO OTHER CONCERNS AT THIS TIME, WILL CONTINUE TO MONITOR.
[2025-03-30 07:25] VITALS: BP 123/70
[2025-03-30] MEDS ORDERED: Lactobacil 2-S.Thermo-Bifido 1 1 Cap PO SCH (11:00)
[2025-03-30] MEDS ORDERED: Vancomycin (Pharmacy Consult) IV SCH (11:00)
[2025-03-30] MEDS ORDERED: Vancomycin HCL 2,500 MG in NS 500 ML IV ONE (11:15)
[2025-03-30 11:22] VITALS: BP 105/74
[2025-03-30] MEDS ORDERED: Piperacillin/Tazobactam Sod 3.375 GM in NS 100 ML IV SCH (12:00)
[2025-03-30 15:33] VITALS: BP 103/67
--- NOTE | 2025-03-30 18:34 | NUR ---
pt had an uneventful day, changed abx due to positive blood cultures, no further changes this shift, call light in reach.
[2025-03-30 20:38] VITALS: BP 116/66
--- NOTE | 2025-03-30 21:20 | NUR ---
PATIENT ALERT TO SELF AND SITUATION SOMEWHAT. ON RA SATS >92%. NO COUGH. TELE -AFIB IN THE 80'S CONTROLED. 1-2 BILA LOW EXTREMITY EDEMA. INC OF BOWEL AND BLADDER WITH CHRONIC MCWILLIAMS. TAKES PILLS ONE AT A TIME WITH WATER. WANTED TYLENOL FOR NON EXISTANT FEVER. TURNED EVERY 2 HRS WHILE AWAKE.
[2025-03-31 00:34] VITALS: BP 121/77
[2025-03-31 04:30] LABS: BASOPHILS ABSOLUTE AUTO 0.07 K/mm3 (0.00-0.23); BASOPHILS PERCENT AUTO 1 % (0-2); EOSINOPHILS ABSOLUTE AUTO 0.52 K/mm3 (0.00-0.68); EOSINOPHILS PERCENT AUTO 7 % (0-6); Hematocrit 35.5 % (37.0-53.0); Hemoglobin 11.3 g/dL (13.5-17.5); IMMATURE GRAN ABSOLUTE AUTO 0.06 K/mm3 (0.00-0.10); IMMATURE GRAN PERCENT AUTO 1 % (0-1); LYMPHOCYTES ABSOLUTE AUTO 1.08 K/mm3 (0.84-5.20); LYMPHOCYTES PERCENT AUTO 15 % (21-46); MONOCYTES ABSOLUTE AUTO 1.10 K/mm3 (0.16-1.47); MONOCYTES PERCENT AUTO 15 % (4-13); Mean Corpuscular HGB Conc 31.8 g/dL (31.5-36.5); Mean Corpuscular Volume 86 fL (80-100); NEUTROPHILS ABSOLUTE AUTO 4.62 K/mm3 (1.96-9.15); NEUTROPHILS PERCENT AUTO 62 % (41-73); NRBC ABSOLUTE 0.00 K/mm3 (0.00-0.02); NRBC Auto 0.0 /100 WBC (0.0-0.2); Platelet Count 206 K/mm3 (150-400); RDW Coefficient Variation 14.4 % (11.7-14.2); RDW Standard Deviation 45.3 fL (35.1-46.3)
[2025-03-31 04:49] LABS: Anion Gap 9.0 mmol/L (3-11); Blood Urea Nitrogen 25.0 mg/dL (8-24); CO2, Blood 23.0 mmol/L (21-32); Calcium, Blood 8.9 mg/dL (8.5-10.1); Chloride, Blood 108.0 mmol/L (98-108); Creatinine, Blood 1.08 mg/dL (0.60-1.20); Glucose, Blood 98.0 mg/dL (70-99); Magnesium, Blood 2.1 mg/dL (1.6-2.4); Phosphorus, Blood 3.0 mg/dL (2.5-4.9); Potassium, Blood 3.7 mmol/L (3.5-5.5); Sodium, Blood 136.0 mmol/L (136-145)
[2025-03-31 04:57] VITALS: BP 131/82
[2025-03-31 07:22] VITALS: BP 126/71
[2025-03-31 11:36] VITALS: BP 117/76
[2025-03-31 15:42] VITALS: BP 124/72
--- NOTE | 2025-03-31 17:20 | NUR ---
NOTE PT ALERT AND ORIENTEDX2. A LITTLE CONFUSED TO PLACE AND EVENT. STAFF FROM YESTERDAY STATED IS STARTED ABOUT DINNER TIME YESTERDAY TOO. AT BEDSIDE. PT COOPERATIVE WITH CARE. TALKED WITH HER ABOUT ANTIBIOTIC TX STARTED TODAY. MCWILLIAMS DRAINING. PT GOOD APPETITE. NO STOOL TODAY. SKIN CARE DONE. MCWILLIAMS CARE DONE. STAT LOCK INPLACE. REPOSTIONED FOR COMFORT AND SKIN PROTECTION. BED ALARM ON. BED LOW AND LOCKED. CALL LIGHT WITH IN REACH. CARE ONGOING.
[2025-03-31] MEDS ORDERED: Ampicillin Sod/Sulbactam Sod 3 GM in NS 100 ML IV SCH (18:00)
[2025-03-31 20:18] VITALS: BP 137/81
[2025-04-01 00:41] VITALS: BP 133/86
[2025-04-01 04:40] VITALS: BP 122/81
[2025-04-01 04:51] LABS: BASOPHILS ABSOLUTE AUTO 0.06 K/mm3 (0.00-0.23); BASOPHILS PERCENT AUTO 1 % (0-2); EOSINOPHILS ABSOLUTE AUTO 0.53 K/mm3 (0.00-0.68); EOSINOPHILS PERCENT AUTO 7 % (0-6); Hematocrit 34.9 % (37.0-53.0); Hemoglobin 11.4 g/dL (13.5-17.5); IMMATURE GRAN ABSOLUTE AUTO 0.05 K/mm3 (0.00-0.10); IMMATURE GRAN PERCENT AUTO 1 % (0-1); LYMPHOCYTES ABSOLUTE AUTO 1.43 K/mm3 (0.84-5.20); LYMPHOCYTES PERCENT AUTO 20 % (21-46); MONOCYTES ABSOLUTE AUTO 0.85 K/mm3 (0.16-1.47); MONOCYTES PERCENT AUTO 12 % (4-13); Mean Corpuscular HGB Conc 32.7 g/dL (31.5-36.5); Mean Corpuscular Volume 87 fL (80-100); NEUTROPHILS ABSOLUTE AUTO 4.23 K/mm3 (1.96-9.15); NEUTROPHILS PERCENT AUTO 59 % (41-73); NRBC ABSOLUTE 0.00 K/mm3 (0.00-0.02); NRBC Auto 0.0 /100 WBC (0.0-0.2); Platelet Count 231 K/mm3 (150-400); RDW Coefficient Variation 14.3 % (11.7-14.2); RDW Standard Deviation 45.9 fL (35.1-46.3)
[2025-04-01 05:17] LABS: Anion Gap 9.0 mmol/L (3-11); Blood Urea Nitrogen 20.0 mg/dL (8-24); CO2, Blood 24.0 mmol/L (21-32); Calcium, Blood 8.7 mg/dL (8.5-10.1); Chloride, Blood 109.0 mmol/L (98-108); Creatinine, Blood 0.97 mg/dL (0.60-1.20); Glucose, Blood 98.0 mg/dL (70-99); Magnesium, Blood 2.1 mg/dL (1.6-2.4); Potassium, Blood 3.8 mmol/L (3.5-5.5); Sodium, Blood 138.0 mmol/L (136-145)
[2025-04-01 07:39] VITALS: BP 143/79
[2025-04-01 11:11] VITALS: BP 131/77
[2025-04-01] MEDS ORDERED: AMOCLA875 PO (14:24)
[2025-04-01] MEDS ORDERED: VISBIOME 112.51 EACH PO (14:24)
--- NOTE | 2025-04-01 15:53 | NUR ---
discharge PT DISCHARGED VIA W/C. 2 MAX TRANSFER WITH GAIT BELT AND FWW TO THE W/C. TOOK OVER AT THE [facility]. SHE DIDN'T LOCK THE BREAKS ON THE W/C. THEY BOTH ALMOST FELL. SENT GAIT BELT HOME WITH PT. CARE ONGOING.
== END 2025-04-01 15:35 | disposition home health service (06) | DRG 698 ==
LOC: ER 22:55 → MEDS 03-29 00:53 → ERHOLD 03-29 00:53 → MEDS 03-29 02:24 → ENPENDDIS 04-01 13:51 → MEDS 04-01 15:35
PROVIDERS: Student in an Organized Health Care Education/Training Program; ADMIT Internal Medicine
PROC: 0T2BX0Z Change Drainage Device in Bladder, External Approach (ICD-10-PCS; principal; 2025-03-29)
PROC: 3E03329 Introduction of Other Anti-infective into Peripheral Vein, Percutaneous Approach (ICD-10-PCS; 2025-03-29)
PROC: 30233J1 Transfusion of Nonautologous Serum Albumin into Peripheral Vein, Percutaneous Approach (ICD-10-PCS; 2025-03-29)
PROC: 3E02340 Introduction of Influenza Vaccine into Muscle, Percutaneous Approach (ICD-10-PCS; 2025-03-29)
DX: T83.511A Infection and inflammatory reaction due to indwelling urethral catheter, initial encounter (principal); A41.81 Sepsis due to Enterococcus; A41.89 Other specified sepsis; I13.0 Hypertensive heart and chronic kidney disease with heart failure and stage 1 through stage 4 chronic kidney disease, or unspecified chronic kidney disease; I50.32 Chronic diastolic (congestive) heart failure; G93.40 Encephalopathy, unspecified; E78.5 Hyperlipidemia, unspecified; I35.0 Nonrheumatic aortic (valve) stenosis; R33.8 Other retention of urine; I48.0 Paroxysmal atrial fibrillation; N18.31 Chronic kidney disease, stage 3a; N39.0 Urinary tract infection, site not specified; R25.1 Tremor, unspecified; R53.81 Other malaise; Z79.01 Long term (current) use of anticoagulants; Z79.899 Other long term (current) drug therapy; Y84.6 Urinary catheterization as the cause of abnormal reaction of the patient, or of later complication, without mention of misadventure at the time of the procedure
CPT/HCPCS: 36415; 51702; 71045; 80048; 80053; 80162; 81001; 82803; 82947; 83605; 83735; 83880; 84100; 85025; 87040; 87077; 87086; 87186; 87637; 93005; 93010; 94760; 97165; 97530; 99285-25; A9270; J0295; J0456; J0696; J2543; J3373; J3475; J7030; J7040; J7050; P9047

== ENCOUNTER → 2025-05-02 | Outpatient (CLI) | payer OTHER | LOC: LAB 08:30 | DX: T83.511D Infection and inflammatory reaction due to indwelling urethral catheter, subsequent encounter (principal); N39.0 Urinary tract infection, site not specified ==